=== PATIENT | female | born 1990 | race Caucasian/White ===

== ENCOUNTER 2017-12-20 18:45 | Inpatient (IN) | payer OTHER, SELFPAY ==
[2017-12-20] MEDS: Lactated Ringers 1,000 ML 50 ML IV (19:35)
[2017-12-20 19:39] VITALS: BMI 22.1
--- NOTE | 2017-12-20 19:44 | PCM.HP.OB ---
History Date of Admission: 12/20/17 Final MATTY: 12/13/17 Gestational age: 41 Weeks and 0 Days History of this : This is a 27 year-old, G [], P [], at weeks gestational age. Smoking Status: Never smoker Alcohol: None Number of Fetus(es): 1 Heart Tracin with mod variability, accels TOCO Analysis: Irregular ctxs History Past Pregnancies: Past Pregnancies Delivery Date Name GA/Weeks Outcome Route Weight Gender Labor Length Anesthesia Delivery Location Provider FOB Labs: Anemia GBS negative Physical Exam General: Alert, Oriented x3 Abdomen: Soft, Non Tender, Non-Distended, Gravid Cervix Dilation (cm): 1 Station: -2 Effacement (%): 60 Assessment/Plan 27yo female @ 41 weeks Induction with cytotec GBS negative EFW less than 4500g, patient with adequate pelvis
[2017-12-20 19:54] LABS: Hematocrit 33.8 % (37-47); Hemoglobin 11.7 g/dl (12.0-15.0); Mean Corp Hgb Conc 34.6 g/gl (32-36); Mean Corpuscular Hgb 30.9 pg (27.0-32.0); Mean Corpuscular Volume 89.2 fL (81-99); Mean Platelet Vol. 8.4 fl (6.2-12.0); Platelet Count 283 K/mm3 (150-450); RBC Distribution Width CV 12.8 % (11.6-14.6); RBC Distribution Width SD 40.7 fl (35.1-43.9); Red Blood Count 3.79 M/mm3 (4.2-5.4); White Blood Count 7.1 K/mm3 (4.4-11.0)
[2017-12-20 19:55] LABS: Scan Indicated on CBC? Y/N NO
[2017-12-20] MEDS: miSOPROStol 25 MCG TABLET VAGINAL (20:19)
[2017-12-21] MEDS: miSOPROStol 25 MCG TABLET VAGINAL ×2 (00:12→04:13)
[2017-12-21] MEDS: 0.9% Normal Saline 100 ML IV.SOLN. 250 ML INTRA-UTER (08:59)
--- NOTE | 2017-12-21 09:02 | PCM.PN.OB ---
Subjective: Doing well, at bedside. Rested throughout the night. Feeling some contractions but not painful. Would like to go natural during labor without epidural. Objective: FHT: 115, minimal-moderate variability, accels, no decels, Category 2 TOCO: every 2-5 minutes, mild to palpation Cervix: 2-3cm/80%/-1. Silverio catheter placed for cervical ripening - Physical Exam Weight: 129 lb Body Mass Index (BMI) 22.1 Intake and Output for Last 24 Hours 12/19/17 12/20/17 12/21/17 23:59 23:59 23:59 Intake Total 600 / 600 Output Total 400 / 400 Balance 200 / 200 Laboratory Tests Past 24 Hrs 12/20/17 12/20/17 19:30 19:30 WBC 7.1 RBC 3.79 L Hgb 11.7 L Hct 33.8 L MCV 89.2 MCH 30.9 MCHC 34.6 RDW 12.8 RDW Differential 40.7 Plt Count 283 MPV 8.4 Blood Type O POSITIVE Antibody Screen NEGATIVE Medical Necessity - Tobacco Use Smoking Status: Never smoker Assessment/Plan A: Post dates IOL Category 2 FHT P: 1) Silverio catheter placed. To shower then start IV Pitocin 2) Planning to go unmedicated for delivery 3) Routine care
[2017-12-21] MEDS: 0.9% Saline Lock 10 ML Syringe IV (11:08)
[2017-12-21] MEDS: Oxytocin 30 units/NS 500 ml 30 UNITS/500 ML IV.SOLN IV (11:31)
[2017-12-21] MEDS: Nalbuphine 10 MG/ML Ampul IV (16:52)
--- NOTE | 2017-12-21 17:52 | PCM.PN.OB ---
Subjective: Resting in bed after Nubain on right side. at bedside. Objective: Coping well Cervix: 5cm/60/-2 per nursing TOCO: evrey 2-2.5 minutes, lasting 60 seconds, moderate to palpation FHT: 120, minimal variability, no accels, no decels, Category 2 FHT Side lying release then placed in hands and knees. - Physical Exam Weight: 129 lb Body Mass Index (BMI) 22.1 Intake and Output for Last 24 Hours 12/19/17 12/20/17 12/21/17 23:59 23:59 23:59 Intake Total 600 / 600 Output Total 400 / 400 Balance 200 / 200 Laboratory Tests Past 24 Hrs 12/20/17 12/20/17 19:30 19:30 WBC 7.1 RBC 3.79 L Hgb 11.7 L Hct 33.8 L MCV 89.2 MCH 30.9 MCHC 34.6 RDW 12.8 RDW Differential 40.7 Plt Count 283 MPV 8.4 Blood Type O POSITIVE Antibody Screen NEGATIVE Medical Necessity - Tobacco Use Smoking Status: Never smoker Assessment/Plan A: Postdates IOL Category 2 FHT P: 1) Positional changes 2) Will complete cervical exam in 40 minutes and possible AROM. 3) Doing well with Nubain at this time, epidural ok if desires.
--- NOTE | 2017-12-21 18:58 | PCM.PN.OB ---
Subjective: Standing at bedside, breathing through contractions. present. Objective: FHT 150, minimal variability, accels, Category 2 TOCO: every 2 minutes, moderate to strong palpation Cervix 6cm/80%/-1 IBOW. AROM for large amount of meconium stained fluid. ROT position. - Physical Exam Weight: 129 lb Body Mass Index (BMI) 22.1 Intake and Output for Last 24 Hours 12/19/17 12/20/17 12/21/17 23:59 23:59 23:59 Intake Total 600 / 600 840 / 840 Output Total 400 / 400 1300 / 1300 Balance 200 / 200 -460 / -460 Laboratory Tests Past 24 Hrs 12/20/17 12/20/17 19:30 19:30 WBC 7.1 RBC 3.79 L Hgb 11.7 L Hct 33.8 L MCV 89.2 MCH 30.9 MCHC 34.6 RDW 12.8 RDW Differential 40.7 Plt Count 283 MPV 8.4 Blood Type O POSITIVE Antibody Screen NEGATIVE Medical Necessity - Tobacco Use Smoking Status: Never smoker Assessment/Plan A: Postdates IOL, active labor Category 2 FHT Meconium Stained Fluid P: 1) Requesting epidural for pain management. 2) Positional changes in bed with peanut ball
[2017-12-21] MEDS: Lactated Ringers 1,000 ML 50 ML IV (22:59)
[2017-12-22] MEDS: Ondansetron 4 MG/2 ML Vial IV (02:38)
[2017-12-22] MEDS: Lactated Ringers 1,000 ML 50 ML IV ×3 (02:44→12:32)
[2017-12-22] MEDS: fentaNYL-bupivacaine (epidural) 100 ML BAG EPIDURAL (07:15)
--- NOTE | 2017-12-22 14:15 | PCM.OB.VAG ---
Vaginal Delivery Maternal Presentation: Medically Indicated Induction Method of Induction: Pitocin, Silverio Bulb, Amniotomy, Cytotec Medical Reason for Induction: Post term Amniotic Membrane Rupture Type: Artificial Amniotic Fluid Description: Thick meconium Final MATTY: 12/13/17 Gestational age: 41 Weeks and 2 Days Date of Procedure: 12/22/17 Pre-Operative Diagnosis: Post-dates Post-Operative Diagnosis: Same Surgery/ Procedure Performed: Spontaneous Vaginal Delivery Type of Anesthesia: Epidural Description of Procedure: Patient pushed for over 6 hours. Slow but steady descent was noted as well as head rotation. MD was present on the L&D unit for pushing at the 3.5 hour bhanu of pushing & until delivery. EFM was overall reassuring and continually assessed. When patient was c/c/+3 she was prepped & draped. Patient pushed to deliver head. Gentle traction placed on head to allow delivery of anterior & posterior shoulders. No excess traction placed on head. Body delivered easily. 3VC clamped & cut and male taken to warmer. Pediatric team present for thick meconium fluid. Placenta delivered with gentle traction. Good uterine tone obtained. Placental Delivery Description: Expressed Placenta Disposition: [facility] Cord Vessel Description: 3 Vessels Estimated Blood Loss: 350ml A gender: Male Episiotomy Description: None Laceration: 2nd degree - perineal - repaired with 3-0 vicryl Medications given after delivery: IV Pitocin Complications: None
[2017-12-22] MEDS: Oxytocin 30 units/NS 500 ml 30 UNITS/500 ML IV.SOLN 334 UNITS IV (15:17)
[2017-12-22] MEDS: Oxytocin 30 units/NS 500 ml 30 UNITS/500 ML IV.SOLN 167 UNITS IV (16:00)
[2017-12-22] MEDS: 0.9% Saline Lock 10 ML Syringe IV (17:00)
[2017-12-22] MEDS: Acetaminophen 325 MG Tablet PO (17:25)
[2017-12-22] MEDS: Ibuprofen 600 MG Tablet PO (19:42)
[2017-12-22 19:45] VITALS: BP 140/94; PULSE 76; RESP 18; TEMP 37; O2SAT 98
--- NOTE | 2017-12-22 19:58 | NURSING ---
patient voided, missed hat, will measure next two voids.
[2017-12-22] MEDS: oxyCODONE 5 MG Tablet PO ×2 (21:10→22:23)
[2017-12-22] MEDS: Acetaminophen 500 MG Tablet 1000 MG PO (23:48)
[2017-12-23] VITALS: BP 123/86; PULSE 75; RESP 16; TEMP 36.3; O2SAT 96
[2017-12-23] MEDS: oxyCODONE 5 MG Tablet PO (03:43)
[2017-12-23 03:45] VITALS: BP 114/78; PULSE 70; RESP 16; TEMP 36.2; O2SAT 98
[2017-12-23 08:00] VITALS: BP 122/86; PULSE 75; RESP 18; TEMP 36.7
--- NOTE | 2017-12-23 08:29 | PCM.PN.OB ---
Subjective: No complaints - Physical Exam General: Alert, Oriented x3 Abdomen: Soft, Non Tender, Non-Distended - ff mid & below umb Extremities: No Calf Tenderness Vital Signs Temp Pulse Resp BP Pulse Ox 97.2 F L 70 16 114/78 98 12/23/17 03:45 12/23/17 03:45 12/23/17 03:45 12/23/17 03:45 12/23/17 03:45 Oxygen Delivery Method Room Air Weight: 129 lb Body Mass Index (BMI) 22.1 Intake and Output for Last 24 Hours 12/21/17 12/22/17 12/23/17 23:59 23:59 23:59 Intake Total 840 / 840 2250 / 2250 Output Total 1300 / 1300 600 / 600 500 / 500 Balance -460 / -460 1650 / 1650 -500 / -500 Medical Necessity - Tobacco Use Smoking Status: Never smoker Assessment/Plan PPD#1 Routine care
[2017-12-23] MEDS: Ibuprofen 600 MG Tablet PO ×2 (08:32→16:01)
[2017-12-23] MEDS: Senna/Docusate Sodium 1 Tablet PO (08:33)
[2017-12-23] MEDS: Acetaminophen 500 MG Tablet 1000 MG PO ×2 (11:15→20:30)
[2017-12-23 14:00] VITALS: BP 121/79; PULSE 89; RESP 18; TEMP 36.7
[2017-12-23 20:39] VITALS: PULSE 80; RESP 20; TEMP 37.2
--- NOTE | 2017-12-23 20:42 | NURSING ---
pt anxious and tearful due to baby in SCN . support given, encouragement given
[2017-12-23 22:00] VITALS: BP 123/80
[2017-12-24] MEDS: Ibuprofen 600 MG Tablet PO ×2 (03:07→09:00)
[2017-12-24] MEDS: Acetaminophen 500 MG Tablet 1000 MG PO (03:08)
[2017-12-24 03:19] VITALS: BP 117/63; PULSE 72; RESP 16; TEMP 36.8; O2SAT 98
[2017-12-24 08:55] VITALS: BP 109/68; PULSE 69; RESP 16; TEMP 36.7; O2SAT 98
[2017-12-24] MEDS: Senna/Docusate Sodium 1 Tablet PO (09:01)
--- NOTE | 2017-12-24 10:35 | PN.OBGYN_ITS ---
Subjective: Doing well per patient and nursing staff. Ambulating and taking PO without difficulty. Voiding and passing flatus. Pain controlled. Baby in special care nursery, not discharged today. and pumping. Baby getting formula supplementation due to hypoglycemia. Tearful today with baby in special care but doing well. Denies headache, visual changes, chest pain, shortness of breath , increased vaginal bleeding or clots, no leg pain. D/C from service and will be hotel status. - Physical Exam General: Alert, Oriented x3 Lungs: Clear to auscultation, Normal air movement, No rhonchi, No wheeze Cardiovascular: Regular rate, Regular Rhythm, No murmurs Abdomen: Bowel Sounds Present, Soft, Non Tender, - - Fundus firm 2 below U Extremities: No edema Psych/Mental Status: Normal Affect, Appropriate, - - Tearful due to baby in special care nursery. Appropriate, at bedside. Vital Signs Temp Pulse Resp BP Pulse Ox 98.0 F 69 16 109/68 98 12/24/17 08:55 12/24/17 08:55 12/24/17 08:55 12/24/17 08:55 12/24/17 08:55 Oxygen Delivery Method Room Air Weight: 129 lb Body Mass Index (BMI) 22.1 Intake and Output for Last 24 Hours 12/22/17 12/23/17 12/24/17 23:59 23:59 23:59 Intake Total 2250 / 2250 Output Total 600 / 600 500 / 500 Balance 1650 / 1650 -500 / -500 Medical Necessity - Tobacco Use Smoking Status: Never smoker Assessment/Plan A: PPD #2 P: 1) D/C and instructions given 2) D/C home today 3) Follow up in 6 weeks
--- NOTE | 2017-12-24 10:36 | DCINST_ITS ---
Discharge Diet: No Restrictions Discharge Activity: Return to Normal Activity, May not drive while taking narcotic pain medications., May Shower May resume sexual activity in: 4-6 weeks Weight Bearing Status: Weight bearing as tolerated Call your doctor if your incision/area has: Continuous Slow Oozing, Sudden Increased Bleeding, Increased Pain/ Swelling, Increased Redness, Foul Smelling Discharge Call your doctor if you observe: Fever of 101 or Higher, Inability to urinate, Inability to have a bowel movement, Using more than one pad per hour, Shortness of breath, Chest pain, Increased palpitations (irregular heartbeat), Uncontrolled pain Additional Instructions: If you experience any of the following, contact your healthcare provider. * Bleeding that soaks a pad every hour for 2 hours * Fever 100.4 or higher * Unrelieved incision or abdominal pain * Swelling, redness, discharge or bleeding from your incision or episiotomy site * Your incision begins to separate * Problems urinating (including inability to urinate or burning while urinating) . * Visual changes * Severe headache * Flu-like symptoms * Pain or redness in one of both of your breasts * Pain, warmth, tenderness or swelling in your legs, especially the calf area * Frequent nausea and vomiting * Symptoms of depression or anxiety If you experience any of the following, call 911 or go to the nearest Emergency Room. * Chest pain * Problems breathing * Seizure activity * Partial or complete paralysis of a body part, slurred speech, weakness or drooping of the face, or a sudden inability to walk or hold your balance Allergies/Adverse Reactions: Allergies No Known Allergies Allergy (Verified 12/20/17 19:45) Medications to take at Discharge Iron 1 tab PO QODAY 12/20/17 Prenatabs FA 1 tab PO DAILY 12/20/17 Acetaminophen [Tylenol] 1,000 mg PO Q8H PRN PRN tablet 12/24/17 Please Follow Up With: Manda Camacho When: Call to make an appointment with your doctor in 6 weeks. If you had elevated Blood Pressure or 4th degree laceration you will need to be seen in 2 weeks. Primary Care Physician: Care Physician,No Primary [Primary Care Provider] - Test Results: Test results from this visit will be discussed in further detail at your follow- up appointment, if applicable.
[2017-12-24 14:30] VITALS: BP 129/86; PULSE 73; RESP 16; TEMP 37.1; O2SAT 99
[2017-12-24 16:53] VITALS: BP 118/73; PULSE 66
--- NOTE | 2017-12-30 16:11 | NURSING ---
follow up call attempted, left message
== END 2017-12-24 18:20 | disposition home or self-care (01) | DRG 775 ==
PROVIDERS: Admitting Provider Obstetrics & Gynecology; Visit Provider Obstetrics & Gynecology
DX: O48.0 Post-term pregnancy (principal); O77.0 Labor and delivery complicated by meconium in amniotic fluid; O70.1 Second degree perineal laceration during delivery; O99.02 Anemia complicating childbirth; D64.9 Anemia, unspecified; Z3A.41 41 weeks gestation of pregnancy; Z37.0 Single live birth
CPT/HCPCS: 59025; 59050; 85027; 86850; 86900; 99218; J7050; J7120; A4216; G0378; J2405

== ENCOUNTER → 2020-03-06 09:45 | Outpatient (CLI) | payer OTHER, SELFPAY ==
[2020-03-06 11:29] LABS: Hematocrit 38.9 % (37-47); Hemoglobin 12.9 g/dL (12.0-15.0); Mean Corp Hgb Conc 33.2 g/dL (32-36); Mean Corpuscular Hgb 30.1 pg (27.0-32.0); Mean Corpuscular Volume 90.9 fL (81-99); Mean Platelet Vol. 8.4 fl (6.2-12.0); Platelet Count 316 K/mm3 (150-450); RBC Distribution Width CV 11.4 % (11.6-14.6); RBC Distribution Width SD 38.5 fl (35.1-43.9); Red Blood Count 4.28 M/mm3 (4.2-5.4); White Blood Count 12.2 K/mm3 (4.4-11.0)
--- NOTE | 2020-03-06 11:32 | HP.PCM_ITS ---
History of Present Illness Date of Admission: 03/06/20 Chief Complaint: Incomplete The patient is a 29 year old F presents from office with heavy vaginal bleeding from a miscarriage. She had 2 syncopal episodes in the office and thus came to [facility] by squad. Past Medical History Allergies No Known Allergies Allergy (Verified 03/06/20 10:07) Home Medications: Ambulatory Orders Medication Instructions Recorded Prenatabs FA 1 tab PO DAILY 12/20/17 Surgical History: noncontributory Psychiatric History: No pertinent psych hx Lives: Spouse/ Significant Other, With Family Smoking Status: Never smoker Review of Systems Constitutional: Reports: Weakness Cardiovascular: Reports: Syncope VTE Information - Inpt Only VTE Present on Admission: No - Physical Exam General: Alert, Oriented x3 - but tired Abdomen: Soft, Non Tender, Non-Distended Extremities: No Calf Tenderness Neurological: Cranial nerves II-XII grossly intact Comment: Pelvic exam in office - showed vagina with 50ml blood, no active bleeding Laboratory Results 03/06/20 10:50: WBC 12.2 H, RBC 4.28, Hgb 12.9, Hct 38.9, MCV 90.9, MCH 30.1, MCHC 33.2, RDW Std Deviation 38.5, RDW Coeff of Dana 11.4 L, Plt Count 316, MPV 8.4 03/06/20 10:50: Sodium Pending, Potassium Pending, Chloride Pending, Carbon Dioxide Pending, Anion Gap Pending, BUN Pending, Creatinine Pending, Est GFR (MDRD) Af Amer Pending, Est GFR (MDRD) Non-Af Pending, BUN/Creatinine Ratio Pending, Glucose Pending, Calcium Pending, Total Bilirubin Pending, AST Pending, ALT Pending, Alkaline Phosphatase Pending, Total Protein Pending, Albumin Pending 03/06/20 10:50: Blood Type Cancelled, Antibody Screen Cancelled Assessment/Plan 29yo female with incomplete at 6 weeks Patient counseled on R/B/A and wishes to proceed with emergent D&C. Informed consent signed. Labs ordered and CBC shows hb of 12.9 which is likely hemoconcentrated. Will repeat cbc post-op. Routine care
[2020-03-06 11:53] LABS: ALB/GLOB Ratio 1.1 RATIO (0.9-2.4); AST(SGOT) 13 U/L (15-37); Alanine Aminotransfer ALT/SGPT 17 U/L (13-56); Alkaline Phosphatase 61 U/L (45-117); Anion Gap 5 (5-15); BUN 13 mg/dL (7-18); BUN/Creat Ratio 18.7 RATIO (10-20); Calcium,Total 9.1 mg/dL (8.5-10.1); Chloride 107 mmol/L (98-107); EST Glomerular Filtration Rate 106 mL/min (>60); Est Glom Filt Rate - Afr Amer 128 mL/min (>60); Globulin 3.6 g/dL (2.2-4.2); Glucose 109 mg/dL (74-106); Potassium 3.9 mmol/L (3.5-5.1); Protein, Total 7.6 g/dL (6.4-8.2); Sodium Level 138 mmol/L (136-145)
--- NOTE | 2020-03-06 11:59 | PCM.OPRPT ---
Report of Operation Date of Procedure: 03/06/20 Pre-Operative Diagnosis: Incomplete at 6 weeks Post-Operative Diagnosis: Same Surgery/Procedure Performed:: Suction dilation and curettage Description of Surgical Findings:: POC's c/w 6 week miscarriage Type of Anesthesia:: General Specimen's removed: Products of conception Drains: None Estimated Blood Loss (mL): 50ml Fluids Replaced: 800ml Description of Procedure: Start time - 11:44 Stop time - 11:52 Patient taken to OR where general anesthesia was placed. She was prepped & draped in the dorsal lithotomy position. Cervix grasped with a tenaculum. #7 suction curette gently inserted 3 times with good return of POC's. Gentle sharp curettage performed with #3 curette to confirm no retained POC's. At end of procedure all instruments removed from vaginal cavity. Patient tolerated with procedure well. - Complications none - Admit VTE Documentation VTE Present on Admission: No
[2020-03-06 12:56] LABS: Absolute Lymphocyte Count 1.51 X10^3/uL (0.83-4.51); Absolute Neutrophil Count 9.8 X10^3/uL (2.0-7.7); Basophil# 0.06 X10^3/uL; Basophil% 0.5 % (0-1); Eosinophil# 0.06 X10^3/uL; Eosinophils% 0.5 % (0-5); Lymphocyte # 1.51 X10^3/ul (4.0); Lymphocyte % 12.5 % (19-41); Monocyte# 0.61 X10^3/uL; NRBC Flagged by Analyzer 0 % (0-5); Neutrophil # 9.83 X10^3/uL (2.7-7.7); Neutrophil % 81.3 % (47-70)
[2020-03-06 13:35] LABS: Absolute Lymphocyte Count 1.06 X10^3/uL (0.83-4.51); Absolute Neutrophil Count 10.6 X10^3/uL (2.0-7.7); Basophil# 0.04 X10^3/uL; Basophil% 0.3 % (0-1); Eosinophil# 0.03 X10^3/uL; Eosinophils% 0.2 % (0-5); Hematocrit 35.8 % (37-47); Hemoglobin 11.7 g/dL (12.0-15.0); Lymphocyte # 1.06 X10^3/ul (4.0); Lymphocyte % 8.8 % (19-41); Mean Corp Hgb Conc 32.7 g/dL (32-36); Mean Corpuscular Hgb 29.5 pg (27.0-32.0); Mean Corpuscular Volume 90.4 fL (81-99); Mean Platelet Vol. 8.5 fl (6.2-12.0); Monocyte# 0.34 X10^3/uL; Monocyte% 2.8 % (0-10); NRBC Flagged by Analyzer 0 % (0-5); Neutrophil # 10.58 X10^3/uL (2.7-7.7); Neutrophil % 87.5 % (47-70); Platelet Count 247 K/mm3 (150-450); RBC Distribution Width CV 11.3 % (11.6-14.6); RBC Distribution Width SD 38.1 fl (35.1-43.9); Red Blood Count 3.96 M/mm3 (4.2-5.4); White Blood Count 12.1 K/mm3 (4.4-11.0)
--- NOTE | 2020-03-06 14:24 | DCINST_ITS ---
Discharge Diet: No Restrictions Discharge Activity: Return to Normal Activity - afer 24-48 hours May resume sexual activity in: 2 weeks Call your doctor if you observe: Fever of 101 or Higher, Coldness, Increased Pain, Numbness or Tingling, Change in Color, Inability to urinate, Inability to have a bowel movement, Using more than one pad per hour, Shortness of breath, Fainting spells, Chest pain, Increased palpitations (irregular heartbeat), Uncontrolled pain Allergies/Adverse Reactions: Allergies No Known Allergies Allergy (Verified 03/06/20 10:07) Medications to take at Discharge Prenatabs FA 1 tab PO DAILY 12/20/17 Test Results: Test results from this visit will be discussed in further detail at your follow- up appointment, if applicable.
== END ==
PROVIDERS: Visit Provider Obstetrics & Gynecology
DX: O03.4 Incomplete spontaneous abortion without complication (principal)
CPT/HCPCS: 80053; 85025; 85027

== ENCOUNTER 2020-03-06 10:03 | Day surgery (SDC) | payer OTHER, SELFPAY ==
[2020-03-06] VITALS (14 sets, daily range): BP systolic 89–120; BP diastolic 52–75; PULSE 56–96; RESP 16–18; TEMP 36.7–37.1; O2SAT 100; BMI 19.2
--- NOTE | 2020-03-06 10:00 | POC_PTH ---
PATIENT: ALPHONSE BRUNO LOC: [facility] [place] U#:[id number] AGE/SX: 29/F ROOM: RE03/06/[address]: Dr. Manda Camacho MD : 1990 BED: DIS: 03/06/2020 SPEC #: [id number] RECD: 03/06/20 12:27 STATUS: TIM PATRICK #: [id number] KYLEE: 03/06/20 10:[address]: Manda Camacho DEPT: SURGICAL PATHOLOGY RECD BY: Janak Lozano ENTERED: 03/06/20 12:37 SP TYPE: PROD CONC OTHR DR: No Primary Care Phys Tissues: Product of conception, NOS Procedures: Surgery Specimen Level IV HEADER OPERATION: Suction D & C PRE-OP DIAGNOSIS: Missed AB TISSUE SUBMITTED: Products of conception MICROSCOPIC DIAGNOSIS Endometrium, curettage: Chorionic villi, decidualized stroma and trophoblastic cells consistent with products of conception. AM:luiza 10/9/20 MICROSCOPIC DESCRIPTION Slides are reviewed. GROSS DESCRIPTION Received in fixative is one container labeled with the patient's name and designated products of conception. The specimen consists of multiple irregular fragments of pink-murphy soft tissue that in aggregate measure 6 x 5 x 0.8 cm. parts are not grossly recognized. Commercial Relief Driver portions are submitted in two cassettes. / AM:luiza 03/06/20 TC:5 CPT: 83665
--- NOTE | 2020-03-06 10:29 | ED.RN ---
1008 this RN received call from Dheeraj Whaley in surgery. Per GENERATION ENGINEER the patient is to be taken directly to OR upon EMS arrival. ED RN was already triaging patient in the ED room. ED RN instructed to transport patient to OR and that ED physician was not expected to evaluate patient in ED.
[2020-03-06] MEDS: Lactated Ringers 1,000 ML 999 ML IV (11:00)
[2020-03-06] MEDS: Methylergonovine 0.2 MG/ML Ampul IM (11:46)
[2020-03-06] MEDS: Doxycycline 100 MG CAPSULE 200 MG PO (14:30)
--- NOTE | 2020-03-07 15:23 | ED.DCSUM_ITS ---
History of Present Illness Chief Complaint: Vag Bld, Preg Narrative: 29-year-old female who was sent to the ER by her TRAFFIC POLICE OFFICER for concern of threatened miscarriage with heavy vaginal bleeding. It was reported to me over the phone when Jeanna Camacho had called that she wanted us to check a CBC and a type and screen and they would then determine whether the patient would go to the OR for D&C. Patient was reportedly 8 weeks . Past Medical History - Allergies and Home Meds Allergies/Adverse Reactions: Allergies No Known Allergies Allergy (Verified 03/06/20 10:07) Past Medical History: - - Unable to obtain Surgical History: noncontributory Lives: - - Unable to obtain social history Smoking Status: Never smoker Review of Systems ROS: Unable to Obtain Physical Exam Inital Vital Signs reviewed: Yes General: - - Unable to perform physical exam Diagnostic/Tx/Re-eval - Medical Decision Making Patient was sent to the ED for evaluation and to obtain CBC and type and screen and then determine whether TRAFFIC POLICE OFFICER would take her to the OR versus using medication. Upon her arrival I did review her vital signs, and when I went to the room to evaluate the patient she had already been taken to the OR by her TRAFFIC POLICE OFFICER. Impression: 1. Reported threatened miscarriage ED Disposition - Plan for ED Patient: Disposition: Acute [facility]
== END 2020-03-06 15:22 | disposition home or self-care (01) ==
LOC: ED 10:36 → SDC 11:20 → ED 15:06 → SDC 15:10
PROVIDERS: Emergency Provider Obstetrics & Gynecology; Visit Provider Obstetrics & Gynecology
PROC: (CPT 59820; principal; 2020-03-06 09:45)
DX: O02.1 Missed abortion (principal); Z3A.01 Less than 8 weeks gestation of pregnancy
CPT/HCPCS: 59820; 80053; 85025; 86850; 86900; 86901; 86920; 88305; 99283; J7120; J2405

== ENCOUNTER 2021-01-27 07:00 | Inpatient (IN) | payer OTHER, SELFPAY ==
[2021-01-27] VITALS (81 sets, daily range): BP systolic 93–138; BP diastolic 55–92; PULSE 48–156; RESP 16; TEMP 36.1–36.4; O2SAT 83–100; BMI 21.8
[2021-01-27] MEDS: Lactated Ringers 1,000 ML 50 ML IV (07:40)
[2021-01-27 07:50] LABS: Absolute Lymphocyte Count 1.99 X10^3/uL (0.83-4.51); Basophil# 0.06 X10^3/uL; Basophil% 0.9 % (0-1); Eosinophil# 0.08 X10^3/uL; Eosinophils% 1.2 % (0-5); Hematocrit 34.8 % (37-47); Hemoglobin 11.9 g/dL (12.0-15.0); Lymphocyte # 1.99 X10^3/ul (0.83-4.51); Lymphocyte % 29.7 % (19-41); Mean Corp Hgb Conc 34.2 g/dL (32-36); Mean Corpuscular Hgb 31.2 pg (27.0-32.0); Mean Corpuscular Volume 91.1 fL (81-99); Mean Platelet Vol. 9.9 fl (6.2-12.0); Monocyte# 0.51 X10^3/uL; Monocyte% 7.6 % (0-10); NRBC Flagged by Analyzer 0 % (0-5); Neutrophil # 4.03 X10^3/uL (2.7-7.7); Neutrophil % 60.2 % (47-70); Platelet Count 179 K/mm3 (150-450); RBC Distribution Width CV 12.9 % (11.6-14.6); RBC Distribution Width SD 41.9 fl (35.1-43.9); Red Blood Count 3.82 M/mm3 (4.2-5.4); White Blood Count 6.7 K/mm3 (4.4-11.0)
[2021-01-27] MEDS: Oxytocin 30 units/NS 500 ml 30 UNITS/500 ML IV.SOLN IV (07:53)
[2021-01-27] MEDS: Lactated Ringers 500 ML 999 ML IV ×2 (11:20→12:04)
--- NOTE | 2021-01-27 11:29 | PCM.HP.OB ---
HPI - General General Date of Admission: 01/27/21 HPI Narrative ALPHONSE BRUNO, is a 30 F who presents Maternal Data Information Final MATTY: 02/03/21 Gestational age: 39 weeks [facility] Medical History (Updated 01/27/21 @ 11:[address] Manda Camacho MD) 39 weeks gestation of Home Medications Prenatabs FA 1 tab PO DAILY 12/20/17 [History Last Taken 01/26/21 10:00] ferrous sulfate [Iron (ferrous sulfate)] 325 mg PO DAILY 01/27/21 [History Last Taken 01/25/21 10:00] Allergy/AdvReac Type Severity Reaction Status Date / Time No Known Allergies Allergy Verified 01/27/21 07:46 Family History (Updated 01/27/21 @ 08:06 by Helen Carbajal RN) Mother Hypertension Father Hypertension Uncle Down syndrome Surgical History (Updated 01/27/21 @ 11:[address] Manda Camacho MD) H/O dilation and curettage Social History Smoking Status: Never smoker History Elective abortions Hx Para 1 Spontaneous abortions Hx # Term Pregnancies Ectopic pregnancies Hx # Pregnancies Multiple births # of living children NST FHR Rate Baby A Baseline: 115 Variability:: Moderate Accelerations:: 15 x 15 Decelerations:: None Uterine Activity:: Q 3 minutes Vital Signs Vital Signs Vital Signs: 01/27/21 08:17 01/27/21 08:18 01/27/21 08:20 Temperature 97.2 F L Temperature Source Temporal Pulse Rate 60 156 H Blood Pressure 125/67 H BP Systolic 125 BP Diastolic 67 Pulse Ox 84 01/27/21 09:08 01/27/21 09:09 01/27/21 10:23 Temperature 97.4 F L 97.5 F L Temperature Source Temporal Temporal Pulse Rate 72 57 L Blood Pressure 134/92 H 131/80 H BP Systolic 134 131 BP Diastolic 92 80 Pulse Ox 99 01/27/21 10:24 Temperature Temperature Source Pulse Rate 61 Blood Pressure BP Systolic BP Diastolic Pulse Ox 99 Weight Weight: 127 lb Body Mass Index (BMI) 21.8 Physical Exam Const alert, oriented x3 and no apparent distress Chest inspection of chest normal Resp normal respiratory effort GI soft to palpation and non-tender Inspection: gravid Narrative: cvx - 3/80/-2 Labs Labs Labs: Blood Type O POSITIVE Antibody Screen NEGATIVE Hct 34.8 % (37-47) L Hgb 11.9 g/dL (12.0-15.0) L Rhogam given: No See [facility] H&P Assessment & Plan (1) 39 weeks gestation of : COMMENT: 39 weeks PLAN: Admit to L&D for induction of labor On pitocin & s/p AROM for clear fluid GBS positive - pcn protocol COVID negative EFW - less than 4500g, patient with adequate pelvis Pain - plans for epidural Routine care
[2021-01-27] MEDS: fentaNYL-bupivacaine (epidural) 100 ML BAG EPIDURAL (12:39)
[2021-01-27] MEDS: Penicillin G 3,000,000 Units 50 ML 100 UNITS IV (12:46)
[2021-01-27] MEDS: Oxytocin 30 units/NS 500 ml 30 UNITS/500 ML IV.SOLN 334 UNITS IV (15:15)
[2021-01-27] MEDS: Ketorolac 30 MG/ML Syringe IV (15:20)
--- NOTE | 2021-01-27 15:37 | EX.PCM.OBRPT ---
Maternal Data Information Final MATTY: 02/03/21 Gestational age: 39 weeks Vaginal Delivery Maternal Presentation Maternal Presentation: Medically Indicated Induction (Femur length less than 2%) Type of Induction: Pitocin and Amniotomy Operative Information Date of Procedure: 01/27/21 Pre-Operative Diagnosis: Induction of labor Post-Operative Diagnosis: Same Surgery / Procedure Performed: Spontaneous Vaginal Delivery Type of Anesthesia: Epidural and Local with 1% Lidocaine Estimated Blood Loss: 350ml Findings Description of Procedure: Pushed with patient when she was C/C/+1. She was draped when C/C/+2. She pushed well to deliver the head with aid of the Ritgen maneuver (used because of bradycardia). head gently guided to allow delivery of anterior and posterior shoulders. No excess traction placed on head. Body delivered and 3VC clamped & cut in delayed fashion. Placenta delivered with gentle traction and good uterine tone obtained. Presentation: LACHO Amniotic Membrane Rupture Type: Artificial Amniotic Fluid Description: Clear Placental Delivery Description: Expressed Placenta Disposition: [facility] Specimen(s) Removed: Placenta Cord Vessel Description: 3 Vessels Cord Entanglement: None Infant A Gender: Male ([place]) (1 minute): 8 (5 minute): 9 Delayed Cord Clamping: Yes Post Vaginal Delivery Medications Given After Delivery: IV Pitocin Episiotomy Description: None Laceration: 2nd degree (perineal - repaired with 3-0 vicryl) Complication Complications: None
[2021-01-27] MEDS: Acetaminophen 500 MG Tablet PO (16:51)
[2021-01-27] MEDS: 0.9% Saline Lock 10 ML Syringe IV (18:10)
[2021-01-27] MEDS: Benzocaine/Lanolin/Aloe Vera 1 SPRAY EACH TOPICAL (18:52)
--- NOTE | 2021-01-27 19:41 | PCM.NUR.HP ---
Objective Objective Data: 01/27/21 08:17 01/27/21 08:18 01/27/21 08:20 Temperature 97.2 F L Temperature Source Temporal Pulse Rate 60 156 H Respiratory Rate Blood Pressure 125/67 H Blood Pressure [BP] Blood Pressure Mean [BP] BP Systolic 125 BP Diastolic 67 Blood Pressure Source [BP] Blood Pressure Position [BP] Blood Pressure Location [BP] Pulse Ox 84 Oxygen Delivery Method 01/27/21 09:08 01/27/21 09:09 01/27/21 10:23 Temperature 97.4 F L 97.5 F L Temperature Source Temporal Temporal Pulse Rate 72 57 L Respiratory Rate Blood Pressure 134/92 H 131/80 H Blood Pressure [BP] Blood Pressure Mean [BP] BP Systolic 134 131 BP Diastolic 92 80 Blood Pressure Source [BP] Blood Pressure Position [BP] Blood Pressure Location [BP] Pulse Ox 99 Oxygen Delivery Method 01/27/21 10:24 01/27/21 11:52 01/27/21 11:57 Temperature Temperature Source Pulse Rate 61 62 88 Respiratory Rate Blood Pressure 125/60 H Blood Pressure [BP] Blood Pressure Mean [BP] BP Systolic 125 BP Diastolic 60 Blood Pressure Source [BP] Blood Pressure Position [BP] Blood Pressure Location [BP] Pulse Ox 99 99 99 Oxygen Delivery Method 01/27/21 12:02 01/27/21 12:03 01/27/21 12:05 Temperature Temperature Source Pulse Rate 61 80 48 L Respiratory Rate Blood Pressure 93/55 L 112/70 Blood Pressure [BP] Blood Pressure Mean [BP] BP Systolic 93 112 BP Diastolic 55 70 Blood Pressure Source [BP] Blood Pressure Position [BP] Blood Pressure Location [BP] Pulse Ox 98 Oxygen Delivery Method 01/27/21 12:06 01/27/21 12:07 01/27/21 12:11 Temperature Temperature Source Pulse Rate 51 L 81 Respiratory Rate Blood Pressure 118/72 120/75 Blood Pressure [BP] Blood Pressure Mean [BP] BP Systolic 118 120 BP Diastolic 72 75 Blood Pressure Source [BP] Blood Pressure Position [BP] Blood Pressure Location [BP] Pulse Ox 97 Oxygen Delivery Method 01/27/21 12:12 01/27/21 12:14 01/27/21 12:17 Temperature Temperature Source Pulse Rate 77 59 L 51 L Respiratory Rate Blood Pressure Blood Pressure [BP] Blood Pressure Mean [BP] BP Systolic BP Diastolic Blood Pressure Source [BP] Blood Pressure Position [BP] Blood Pressure Location [BP] Pulse Ox 100 91 96 Oxygen Delivery Method 01/27/21 12:18 01/27/21 12:22 01/27/21 12:27 Temperature Temperature Source Pulse Rate 54 L 60 74 Respiratory Rate Blood Pressure 115/72 116/74 106/62 Blood Pressure [BP] Blood Pressure Mean [BP] BP Systolic 115 116 106 BP Diastolic 72 74 62 Blood Pressure Source [BP] Blood Pressure Position [BP] Blood Pressure Location [BP] Pulse Ox 98 Oxygen Delivery Method 01/27/21 12:28 01/27/21 12:32 01/27/21 12:33 Temperature Temperature Source Pulse Rate 57 L 54 L 68 Respiratory Rate Blood Pressure 100/55 L Blood Pressure [BP] Blood Pressure Mean [BP] BP Systolic 100 BP Diastolic 55 Blood Pressure Source [BP] Blood Pressure Position [BP] Blood Pressure Location [BP] Pulse Ox 99 88 Oxygen Delivery Method 01/27/21 12:38 01/27/21 12:39 01/27/21 12:41 Temperature Temperature Source Pulse Rate 59 L 53 L Respiratory Rate Blood Pressure 106/60 111/61 Blood Pressure [BP] Blood Pressure Mean [BP] BP Systolic 106 111 BP Diastolic 60 61 Blood Pressure Source [BP] Blood Pressure Position [BP] Blood Pressure Location [BP] Pulse Ox 90 Oxygen Delivery Method 01/27/21 12:43 01/27/21 12:48 01/27/21 12:53 Temperature Temperature Source Pulse Rate 74 63 105 H Respiratory Rate Blood Pressure 105/61 Blood Pressure [BP] Blood Pressure Mean [BP] BP Systolic 105 BP Diastolic 61 Blood Pressure Source [BP] Blood Pressure Position [BP] Blood Pressure Location [BP] Pulse Ox 100 96 100 Oxygen Delivery Method 01/27/21 12:58 01/27/21 13:03 01/27/21 13:08 Temperature Temperature Source Pulse Rate 67 70 62 Respiratory Rate Blood Pressure Blood Pressure [BP] Blood Pressure Mean [BP] BP Systolic BP Diastolic Blood Pressure Source [BP] Blood Pressure Position [BP] Blood Pressure Location [BP] Pulse Ox 100 100 100 Oxygen Delivery Method 01/27/21 13:13 01/27/21 13:18 01/27/21 13:21 Temperature Temperature Source Pulse Rate 81 67 89 Respiratory Rate Blood Pressure Blood Pressure [BP] Blood Pressure Mean [BP] BP Systolic BP Diastolic Blood Pressure Source [BP] Blood Pressure Position [BP] Blood Pressure Location [BP] Pulse Ox 99 98 90 Oxygen Delivery Method 01/27/21 13:23 01/27/21 13:24 01/27/21 13:25 Temperature 96.9 F L Temperature Source Temporal Pulse Rate 59 L 59 L Respiratory Rate Blood Pressure 114/71 Blood Pressure [BP] Blood Pressure Mean [BP] BP Systolic 114 BP Diastolic 71 Blood Pressure Source [BP] Blood Pressure Position [BP] Blood Pressure Location [BP] Pulse Ox 100 Oxygen Delivery Method 01/27/21 13:28 01/27/21 13:33 01/27/21 13:49 Temperature 97.2 F L Temperature Source Temporal Pulse Rate 76 108 H Respiratory Rate Blood Pressure Blood Pressure [BP] Blood Pressure Mean [BP] BP Systolic BP Diastolic Blood Pressure Source [BP] Blood Pressure Position [BP] Blood Pressure Location [BP] Pulse Ox 100 100 Oxygen Delivery Method 01/27/21 14:49 01/27/21 15:05 01/27/21 15:10 Temperature Temperature Source Pulse Rate 75 98 131 H Respiratory Rate Blood Pressure Blood Pressure [BP] Blood Pressure Mean [BP] BP Systolic BP Diastolic Blood Pressure Source [BP] Blood Pressure Position [BP] Blood Pressure Location [BP] Pulse Ox 96 93 90 Oxygen Delivery Method 01/27/21 15:37 01/27/21 15:42 01/27/21 15:47 Temperature 97.3 F L Temperature Source Temporal Pulse Rate 86 83 73 Respiratory Rate Blood Pressure 129/70 H Blood Pressure [BP] Blood Pressure Mean [BP] BP Systolic 129 BP Diastolic 70 Blood Pressure Source [BP] Blood Pressure Position [BP] Blood Pressure Location [BP] Pulse Ox 100 100 100 Oxygen Delivery Method 01/27/21 15:49 01/27/21 15:52 01/27/21 15:57 Temperature Temperature Source Pulse Rate 76 75 64 Respiratory Rate Blood Pressure 138/79 H Blood Pressure [BP] Blood Pressure Mean [BP] BP Systolic 138 BP Diastolic 79 Blood Pressure Source [BP] Blood Pressure Position [BP] Blood Pressure Location [BP] Pulse Ox 100 100 Oxygen Delivery Method 01/27/21 16:02 01/27/21 16:07 01/27/21 16:09 Temperature Temperature Source Pulse Rate 71 63 72 Respiratory Rate Blood Pressure 130/58 H Blood Pressure [BP] Blood Pressure Mean [BP] BP Systolic 130 BP Diastolic 58 Blood Pressure Source [BP] Blood Pressure Position [BP] Blood Pressure Location [BP] Pulse Ox 100 100 Oxygen Delivery Method 01/27/21 16:10 01/27/21 16:12 01/27/21 16:17 Temperature Temperature Source Pulse Rate 64 70 Respiratory Rate Blood Pressure Blood Pressure [BP] Blood Pressure Mean [BP] BP Systolic BP Diastolic Blood Pressure Source [BP] Blood Pressure Position [BP] Blood Pressure Location [BP] Pulse Ox 83 100 100 Oxygen Delivery Method 01/27/21 16:20 01/27/21 16:22 01/27/21 16:27 Temperature 97.0 F L Temperature Source Temporal Pulse Rate 68 58 L 60 Respiratory Rate Blood Pressure 127/79 H Blood Pressure [BP] Blood Pressure Mean [BP] BP Systolic 127 BP Diastolic 79 Blood Pressure Source [BP] Blood Pressure Position [BP] Blood Pressure Location [BP] Pulse Ox 100 100 Oxygen Delivery Method 01/27/21 16:32 01/27/21 16:34 01/27/21 16:37 Temperature 97.1 F L Temperature Source Temporal Pulse Rate 61 57 L 62 Respiratory Rate Blood Pressure 128/77 H Blood Pressure [BP] Blood Pressure Mean [BP] BP Systolic 128 BP Diastolic 77 Blood Pressure Source [BP] Blood Pressure Position [BP] Blood Pressure Location [BP] Pulse Ox 100 100 Oxygen Delivery Method 01/27/21 16:42 01/27/21 16:47 01/27/21 16:49 Temperature 97.1 F L Temperature Source Temporal Pulse Rate 63 69 71 Respiratory Rate Blood Pressure 126/83 H Blood Pressure [BP] Blood Pressure Mean [BP] BP Systolic 126 BP Diastolic 83 Blood Pressure Source [BP] Blood Pressure Position [BP] Blood Pressure Location [BP] Pulse Ox 100 100 Oxygen Delivery Method 01/27/21 16:52 01/27/21 16:57 01/27/21 17:02 Temperature Temperature Source Pulse Rate 66 72 65 Respiratory Rate Blood Pressure Blood Pressure [BP] Blood Pressure Mean [BP] BP Systolic BP Diastolic Blood Pressure Source [BP] Blood Pressure Position [BP] Blood Pressure Location [BP] Pulse Ox 100 100 100 Oxygen Delivery Method 01/27/21 17:04 01/27/21 17:07 01/27/21 17:12 Temperature 97.5 F L Temperature Source Temporal Pulse Rate 81 66 67 Respiratory Rate Blood Pressure 125/85 H Blood Pressure [BP] Blood Pressure Mean [BP] BP Systolic 125 BP Diastolic 85 Blood Pressure Source [BP] Blood Pressure Position [BP] Blood Pressure Location [BP] Pulse Ox 100 100 Oxygen Delivery Method 01/27/21 17:17 01/27/21 17:18 01/27/21 17:19 Temperature 97.5 F L Temperature Source Temporal Pulse Rate 68 79 Respiratory Rate Blood Pressure 130/85 H Blood Pressure [BP] Blood Pressure Mean [BP] BP Systolic 130 BP Diastolic 85 Blood Pressure Source [BP] Blood Pressure Position [BP] Blood Pressure Location [BP] Pulse Ox 100 Oxygen Delivery Method 01/27/21 17:22 01/27/21 17:31 01/27/21 17:33 Temperature Temperature Source Pulse Rate 71 71 73 Respiratory Rate Blood Pressure 124/70 H Blood Pressure [BP] Blood Pressure Mean [BP] BP Systolic 124 BP Diastolic 70 Blood Pressure Source [BP] Blood Pressure Position [BP] Blood Pressure Location [BP] Pulse Ox 100 98 Oxygen Delivery Method 01/27/21 17:34 Temperature 97.4 F L Temperature Source Temporal Pulse Rate 79 Respiratory Rate 16 Blood Pressure 122/71 H Blood Pressure [BP] 122/71 H Blood Pressure Mean [BP] 88 BP Systolic 122 BP Diastolic 71 Blood Pressure Source [BP] Monitor Blood Pressure Position [BP] Semi-Fowlers Blood Pressure Location [BP] Left Arm Pulse Ox 99 Oxygen Delivery Method Room Air Weight: 57.606 kg Vital Signs Temp Pulse Resp BP BP Pulse Ox 01/27/21 17:34 97.4 F L 79 16 122/71 H 122/71 H 99 01/27/21 17:33 73 124/70 H 01/27/21 17:31 71 98 01/27/21 17:22 71 100 01/27/21 17:19 79 130/85 H 01/27/21 17:18 97.5 F L 01/27/21 17:17 68 100 01/27/21 17:12 67 100 01/27/21 17:07 66 100 01/27/21 17:04 97.5 F L 81 125/85 H 01/27/21 17:02 65 100 01/27/21 16:57 72 100 01/27/21 16:52 66 100 01/27/21 16:49 97.1 F L 71 126/83 H 01/27/21 16:47 69 100 01/27/21 16:42 63 100 01/27/21 16:37 62 100 01/27/21 16:34 97.1 F L 57 L 128/77 H 01/27/21 16:32 61 100 01/27/21 16:27 60 100 01/27/21 16:22 58 L 100 01/27/21 16:20 97.0 F L 68 127/79 H 01/27/21 16:17 70 100 01/27/21 16:12 64 100 01/27/21 16:10 83 01/27/21 16:09 72 130/58 H 01/27/21 16:07 63 100 01/27/21 16:02 71 100 01/27/21 15:57 64 100 01/27/21 15:52 75 100 01/27/21 15:49 76 138/79 H 01/27/21 15:47 97.3 F L 73 100 01/27/21 15:42 83 100 01/27/21 15:37 86 129/70 H 100 01/27/21 15:10 131 H 90 01/27/21 15:05 98 93 01/27/21 14:49 75 96 01/27/21 13:49 97.2 F L 01/27/21 13:33 108 H 100 01/27/21 13:28 76 100 01/27/21 13:25 59 L 114/71 01/27/21 13:24 96.9 F L 01/27/21 13:23 59 L 100 01/27/21 13:21 89 90 01/27/21 13:18 67 98 01/27/21 13:13 81 99 01/27/21 13:08 62 100 01/27/21 13:03 70 100 01/27/21 12:58 67 100 01/27/21 12:53 105 H 100 01/27/21 12:48 63 105/61 96 01/27/21 12:43 74 100 01/27/21 12:41 53 L 111/61 01/27/21 12:39 59 L 90 01/27/21 12:38 106/60 01/27/21 12:33 68 88 01/27/21 12:32 54 L 100/55 L 01/27/21 12:28 57 L 99 01/27/21 12:27 74 106/62 01/27/21 12:22 60 116/74 98 01/27/21 12:18 54 L 115/72 01/27/21 12:17 51 L 96 01/27/21 12:14 59 L 91 01/27/21 12:12 77 100 01/27/21 12:11 81 120/75 01/27/21 12:07 51 L 97 01/27/21 12:06 118/72 01/27/21 12:05 48 L 112/70 01/27/21 12:03 80 93/55 L 01/27/21 12:02 61 98 01/27/21 11:57 88 125/60 H 99 01/27/21 11:52 62 99 01/27/21 10:24 61 99 01/27/21 10:23 97.5 F L 57 L 131/80 H 01/27/21 09:09 99 01/27/21 09:08 97.4 F L 72 134/92 H 01/27/21 08:20 156 H 84 01/27/21 08:18 60 125/67 H 01/27/21 08:17 97.2 F L Lab tests last 48H 01/27/21 01/27/21 07:40 07:40 WBC 6.7 RBC 3.82 L Hgb 11.9 L Hct 34.8 L MCV 91.1 MCH 31.2 MCHC 34.2 RDW Std Deviation 41.9 RDW Coeff of Dana 12.9 Plt Count 179 MPV 9.9 Immature Gran % (Auto) 0.400 Neut % (Auto) 60.2 Lymph % (Auto) 29.7 [place] % (Auto) 7.6 Eos % (Auto) 1.2 Baso % (Auto) 0.9 Absolute Neuts (auto) 4.0 Absolute Lymphs (auto) 1.99 Nucleated RBC % 0 Blood Type O POSITIVE Antibody Screen NEGATIVE Vital Signs Vital Signs Vital Signs: 01/27/21 08:17 01/27/21 08:18 01/27/21 08:20 Temperature 97.2 F L Temperature Source Temporal Pulse Rate 60 156 H Respiratory Rate Blood Pressure 125/67 H Blood Pressure [BP] Blood Pressure Mean [BP] BP Systolic 125 BP Diastolic 67 Blood Pressure Source [BP] Blood Pressure Position [BP] Blood Pressure Location [BP] Pulse Ox 84 Oxygen Delivery Method 01/27/21 09:08 01/27/21 09:09 01/27/21 10:23 Temperature 97.4 F L 97.5 F L Temperature Source Temporal Temporal Pulse Rate 72 57 L Respiratory Rate Blood Pressure 134/92 H 131/80 H Blood Pressure [BP] Blood Pressure Mean [BP] BP Systolic 134 131 BP Diastolic 92 80 Blood Pressure Source [BP] Blood Pressure Position [BP] Blood Pressure Location [BP] Pulse Ox 99 Oxygen Delivery Method 01/27/21 10:24 01/27/21 11:52 01/27/21 11:57 Temperature Temperature Source Pulse Rate 61 62 88 Respiratory Rate Blood Pressure 125/60 H Blood Pressure [BP] Blood Pressure Mean [BP] BP Systolic 125 BP Diastolic 60 Blood Pressure Source [BP] Blood Pressure Position [BP] Blood Pressure Location [BP] Pulse Ox 99 99 99 Oxygen Delivery Method 01/27/21 12:02 01/27/21 12:03 01/27/21 12:05 Temperature Temperature Source Pulse Rate 61 80 48 L Respiratory Rate Blood Pressure 93/55 L 112/70 Blood Pressure [BP] Blood Pressure Mean [BP] BP Systolic 93 112 BP Diastolic 55 70 Blood Pressure Source [BP] Blood Pressure Position [BP] Blood Pressure Location [BP] Pulse Ox 98 Oxygen Delivery Method 01/27/21 12:06 01/27/21 12:07 01/27/21 12:11 Temperature Temperature Source Pulse Rate 51 L 81 Respiratory Rate Blood Pressure 118/72 120/75 Blood Pressure [BP] Blood Pressure Mean [BP] BP Systolic 118 120 BP Diastolic 72 75 Blood Pressure Source [BP] Blood Pressure Position [BP] Blood Pressure Location [BP] Pulse Ox 97 Oxygen Delivery Method 01/27/21 12:12 01/27/21 12:14 01/27/21 12:17 Temperature Temperature Source Pulse Rate 77 59 L 51 L Respiratory Rate Blood Pressure Blood Pressure [BP] Blood Pressure Mean [BP] BP Systolic BP Diastolic Blood Pressure Source [BP] Blood Pressure Position [BP] Blood Pressure Location [BP] Pulse Ox 100 91 96 Oxygen Delivery Method 01/27/21 12:18 01/27/21 12:22 01/27/21 12:27 Temperature Temperature Source Pulse Rate 54 L 60 74 Respiratory Rate Blood Pressure 115/72 116/74 106/62 Blood Pressure [BP] Blood Pressure Mean [BP] BP Systolic 115 116 106 BP Diastolic 72 74 62 Blood Pressure Source [BP] Blood Pressure Position [BP] Blood Pressure Location [BP] Pulse Ox 98 Oxygen Delivery Method 01/27/21 12:28 01/27/21 12:32 01/27/21 12:33 Temperature Temperature Source Pulse Rate 57 L 54 L 68 Respiratory Rate Blood Pressure 100/55 L Blood Pressure [BP] Blood Pressure Mean [BP] BP Systolic 100 BP Diastolic 55 Blood Pressure Source [BP] Blood Pressure Position [BP] Blood Pressure Location [BP] Pulse Ox 99 88 Oxygen Delivery Method 01/27/21 12:38 01/27/21 12:39 01/27/21 12:41 Temperature Temperature Source Pulse Rate 59 L 53 L Respiratory Rate Blood Pressure 106/60 111/61 Blood Pressure [BP] Blood Pressure Mean [BP] BP Systolic 106 111 BP Diastolic 60 61 Blood Pressure Source [BP] Blood Pressure Position [BP] Blood Pressure Location [BP] Pulse Ox 90 Oxygen Delivery Method 01/27/21 12:43 01/27/21 12:48 01/27/21 12:53 Temperature Temperature Source Pulse Rate 74 63 105 H Respiratory Rate Blood Pressure 105/61 Blood Pressure [BP] Blood Pressure Mean [BP] BP Systolic 105 BP Diastolic 61 Blood Pressure Source [BP] Blood Pressure Position [BP] Blood Pressure Location [BP] Pulse Ox 100 96 100 Oxygen Delivery Method 01/27/21 12:58 01/27/21 13:03 01/27/21 13:08 Temperature Temperature Source Pulse Rate 67 70 62 Respiratory Rate Blood Pressure Blood Pressure [BP] Blood Pressure Mean [BP] BP Systolic BP Diastolic Blood Pressure Source [BP] Blood Pressure Position [BP] Blood Pressure Location [BP] Pulse Ox 100 100 100 Oxygen Delivery Method 01/27/21 13:13 01/27/21 13:18 01/27/21 13:21 Temperature Temperature Source Pulse Rate 81 67 89 Respiratory Rate Blood Pressure Blood Pressure [BP] Blood Pressure Mean [BP] BP Systolic BP Diastolic Blood Pressure Source [BP] Blood Pressure Position [BP] Blood Pressure Location [BP] Pulse Ox 99 98 90 Oxygen Delivery Method 01/27/21 13:23 01/27/21 13:24 01/27/21 13:25 Temperature 96.9 F L Temperature Source Temporal Pulse Rate 59 L 59 L Respiratory Rate Blood Pressure 114/71 Blood Pressure [BP] Blood Pressure Mean [BP] BP Systolic 114 BP Diastolic 71 Blood Pressure Source [BP] Blood Pressure Position [BP] Blood Pressure Location [BP] Pulse Ox 100 Oxygen Delivery Method 01/27/21 13:28 01/27/21 13:33 01/27/21 13:49 Temperature 97.2 F L Temperature Source Temporal Pulse Rate 76 108 H Respiratory Rate Blood Pressure Blood Pressure [BP] Blood Pressure Mean [BP] BP Systolic BP Diastolic Blood Pressure Source [BP] Blood Pressure Position [BP] Blood Pressure Location [BP] Pulse Ox 100 100 Oxygen Delivery Method 01/27/21 14:49 01/27/21 15:05 01/27/21 15:10 Temperature Temperature Source Pulse Rate 75 98 131 H Respiratory Rate Blood Pressure Blood Pressure [BP] Blood Pressure Mean [BP] BP Systolic BP Diastolic Blood Pressure Source [BP] Blood Pressure Position [BP] Blood Pressure Location [BP] Pulse Ox 96 93 90 Oxygen Delivery Method 01/27/21 15:37 01/27/21 15:42 01/27/21 15:47 Temperature 97.3 F L Temperature Source Temporal Pulse Rate 86 83 73 Respiratory Rate Blood Pressure 129/70 H Blood Pressure [BP] Blood Pressure Mean [BP] BP Systolic 129 BP Diastolic 70 Blood Pressure Source [BP] Blood Pressure Position [BP] Blood Pressure Location [BP] Pulse Ox 100 100 100 Oxygen Delivery Method 01/27/21 15:49 01/27/21 15:52 01/27/21 15:57 Temperature Temperature Source Pulse Rate 76 75 64 Respiratory Rate Blood Pressure 138/79 H Blood Pressure [BP] Blood Pressure Mean [BP] BP Systolic 138 BP Diastolic 79 Blood Pressure Source [BP] Blood Pressure Position [BP] Blood Pressure Location [BP] Pulse Ox 100 100 Oxygen Delivery Method 01/27/21 16:02 01/27/21 16:07 01/27/21 16:09 Temperature Temperature Source Pulse Rate 71 63 72 Respiratory Rate Blood Pressure 130/58 H Blood Pressure [BP] Blood Pressure Mean [BP] BP Systolic 130 BP Diastolic 58 Blood Pressure Source [BP] Blood Pressure Position [BP] Blood Pressure Location [BP] Pulse Ox 100 100 Oxygen Delivery Method 01/27/21 16:10 01/27/21 16:12 01/27/21 16:17 Temperature Temperature Source Pulse Rate 64 70 Respiratory Rate Blood Pressure Blood Pressure [BP] Blood Pressure Mean [BP] BP Systolic BP Diastolic Blood Pressure Source [BP] Blood Pressure Position [BP] Blood Pressure Location [BP] Pulse Ox 83 100 100 Oxygen Delivery Method 01/27/21 16:20 01/27/21 16:22 01/27/21 16:27 Temperature 97.0 F L Temperature Source Temporal Pulse Rate 68 58 L 60 Respiratory Rate Blood Pressure 127/79 H Blood Pressure [BP] Blood Pressure Mean [BP] BP Systolic 127 BP Diastolic 79 Blood Pressure Source [BP] Blood Pressure Position [BP] Blood Pressure Location [BP] Pulse Ox 100 100 Oxygen Delivery Method 01/27/21 16:32 01/27/21 16:34 01/27/21 16:37 Temperature 97.1 F L Temperature Source Temporal Pulse Rate 61 57 L 62 Respiratory Rate Blood Pressure 128/77 H Blood Pressure [BP] Blood Pressure Mean [BP] BP Systolic 128 BP Diastolic 77 Blood Pressure Source [BP] Blood Pressure Position [BP] Blood Pressure Location [BP] Pulse Ox 100 100 Oxygen Delivery Method 01/27/21 16:42 01/27/21 16:47 01/27/21 16:49 Temperature 97.1 F L Temperature Source Temporal Pulse Rate 63 69 71 Respiratory Rate Blood Pressure 126/83 H Blood Pressure [BP] Blood Pressure Mean [BP] BP Systolic 126 BP Diastolic 83 Blood Pressure Source [BP] Blood Pressure Position [BP] Blood Pressure Location [BP] Pulse Ox 100 100 Oxygen Delivery Method 01/27/21 16:52 01/27/21 16:57 01/27/21 17:02 Temperature Temperature Source Pulse Rate 66 72 65 Respiratory Rate Blood Pressure Blood Pressure [BP] Blood Pressure Mean [BP] BP Systolic BP Diastolic Blood Pressure Source [BP] Blood Pressure Position [BP] Blood Pressure Location [BP] Pulse Ox 100 100 100 Oxygen Delivery Method 01/27/21 17:04 01/27/21 17:07 01/27/21 17:12 Temperature 97.5 F L Temperature Source Temporal Pulse Rate 81 66 67 Respiratory Rate Blood Pressure 125/85 H Blood Pressure [BP] Blood Pressure Mean [BP] BP Systolic 125 BP Diastolic 85 Blood Pressure Source [BP] Blood Pressure Position [BP] Blood Pressure Location [BP] Pulse Ox 100 100 Oxygen Delivery Method 01/27/21 17:17 01/27/21 17:18 01/27/21 17:19 Temperature 97.5 F L Temperature Source Temporal Pulse Rate 68 79 Respiratory Rate Blood Pressure 130/85 H Blood Pressure [BP] Blood Pressure Mean [BP] BP Systolic 130 BP Diastolic 85 Blood Pressure Source [BP] Blood Pressure Position [BP] Blood Pressure Location [BP] Pulse Ox 100 Oxygen Delivery Method 01/27/21 17:22 01/27/21 17:31 01/27/21 17:33 Temperature Temperature Source Pulse Rate 71 71 73 Respiratory Rate Blood Pressure 124/70 H Blood Pressure [BP] Blood Pressure Mean [BP] BP Systolic 124 BP Diastolic 70 Blood Pressure Source [BP] Blood Pressure Position [BP] Blood Pressure Location [BP] Pulse Ox 100 98 Oxygen Delivery Method 01/27/21 17:34 Temperature 97.4 F L Temperature Source Temporal Pulse Rate 79 Respiratory Rate 16 Blood Pressure 122/71 H Blood Pressure [BP] 122/71 H Blood Pressure Mean [BP] 88 BP Systolic 122 BP Diastolic 71 Blood Pressure Source [BP] Monitor Blood Pressure Position [BP] Semi-Fowlers Blood Pressure Location [BP] Left Arm Pulse Ox 99 Oxygen Delivery Method Room Air Weight Weight: 57.606 kg Body Mass Index (BMI) 21.8 General Weight: 57.606 kg alert, active, no apparent distress and strong cry HEENT Yes normal to inspection and normocephalic Eyes: red reflex present bilaterally and conjunctiva normal Ears: Yes external ears normal and Yes neutral position Nose: Yes external nose normal and nares normal Oropharynx: Yes oral and palatal mucosa normal and Yes moist mucous membranes abnormal Neck Neck: full ROM, no lymphadenopathy and supple Respiratory Respiratory: normal respiratory effort and clear to auscultation bilaterally Cardiovascular Yes regular rate, regular rhythm, no murmurs, no clicks, no rub, no gallops, normal capillary refill and femoral pulses present Abdomen normal to inspection, nondistended, normoactive bowel sounds, soft to palpation, non-distended, non-tender and no hepatosplenomegaly 3 Vessels external exam normal Musculoskeletal full ROM and hip exam without evidence of dislocation or instability Neurological normal suck, rooting, and barry reflexes, muscle tone normal and moving extremities equally Skin normal color and no jaundice
[2021-01-27] MEDS: Ibuprofen 600 MG Tablet PO (21:37)
[2021-01-28] VITALS (9 sets, daily range): BP systolic 120–137; BP diastolic 74–84; PULSE 57–74; RESP 14–16; TEMP 36.1–36.3; O2SAT 96–98
[2021-01-28] MEDS: Ibuprofen 600 MG Tablet PO (08:33)
[2021-01-28] MEDS: Senna/Docusate Sodium 1 Tablet PO (08:46)
--- NOTE | 2021-01-28 08:54 | PN.OBGYN_ITS ---
Subjective Subjective Pain well controlled. Average lochia. Objective Data Objective Data Vital Signs: Vital Signs Temp Pulse Resp BP Pulse Ox 97.4 F L 57 L 14 137/82 H 98 01/28/21 04:55 01/28/21 08:35 01/28/21 04:55 01/28/21 08:35 01/28/21 04:55 Oxygen Delivery Method Room Air Weight: 57.606 kg Body Mass Index (BMI) 21.8 Intake & Output: Intake and Output for Last 24 Hours 01/26/21 01/27/21 01/28/21 23:59 23:59 23:59 Intake Total 1969.07 / 1969.07 Output Total 200 / 200 250 / 250 Balance 1769.07 / 1769.07 -250 / -250 Lab / Micro Data Result Diagrams: 01/27/21 07:40 Labs: Laboratory Results - last 24 hr 01/27/21 07:40: Blood Type O POSITIVE, Antibody Screen NEGATIVE Physical Exam Const alert and no apparent distress Narrative: Fundus firm, below umbilicus. Assessment & Plan (1) Normal vaginal delivery: PLAN: day #1 status post vaginal delivery. is breast- feeding and doing well. Patient is doing well. Patient desires discharge home today. 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
--- NOTE | 2021-01-28 08:55 | PCM.DC.SUM ---
Providers Date of Admission: 01/27/21 Date of Discharge: 01/28/21 Reason For Visit: VAGINAL DELIVERY Diagnosis Discharge Diagnosis (1) Normal vaginal delivery: Status: Acute Code(s): O80 - Encounter for full-term uncomplicated delivery Medications at Discharge Home Medications Prenatabs FA 1 tab PO DAILY 12/20/17 ferrous sulfate [Iron (ferrous sulfate)] 325 mg PO DAILY 01/27/21 Hospital Course Operations - (Spontaneous vaginal delivery.) Procedures None Summary of Care Provided Hospital Course: Patient was admitted for induction of labor. She had an uncomplicated vaginal delivery. Weight / BMI Weight Weight: 57.606 kg Body Mass Index (BMI) 21.8 ABG / Lab / Microbiology Data Result Diagrams: 01/27/21 07:40 Laboratory: Laboratory Results - last 24 hr 01/27/21 07:40: Blood Type O POSITIVE, Antibody Screen NEGATIVE D/C Instructions Discharge Diet: No restrictions May resume sexual activity in: 6 weeks Call your doctor if your incision/area has: Continuous Slow Oozing, Sudden Increased Bleeding, Foul Smelling Discharge and Swelling at the incision site Call your doctor if you observe: Fever of 101 or Higher and Inability to urinate Please Follow Up With: Marycruz Theodore MD When: Follow up with our office in 1-2 and 6 weeks or as needed. [phone] Meaningful Use Info Meaningful Use Diagnoses (Choose all that apply): None applicable Discharge Plan Admission Admit Date/Time: 01/27/21 07:00 Primary Reason for Your Visit: Vaginal delivery Attending Provider: Manda Camacho Discharge Orders/Prescriptions Prescriptions: No Action Prenatabs FA 1 tab PO DAILY RF: 0 ferrous sulfate [Iron (ferrous sulfate)] 325 mg (65 mg iron) Tablet 325 mg PO DAILY RF: 0 Disposition Disposition (needs filled in before D/C Order can be placed): Home, Self Care
[2021-01-28] MEDS: Acetaminophen 500 MG Tablet PO (10:06)
== END 2021-01-28 17:20 | disposition home or self-care (01) | DRG 807 ==
PROVIDERS: Obstetrics & Gynecology; Admitting Provider Obstetrics & Gynecology; Referring Provider Obstetrics & Gynecology; Visit Provider Obstetrics & Gynecology
DX: O99.824 Streptococcus B carrier state complicating childbirth (principal); Z37.0 Single live birth; Z3A.39 39 weeks gestation of pregnancy; O66.3 Obstructed labor due to other abnormalities of fetus; O76 Abnormality in fetal heart rate and rhythm complicating labor and delivery; O70.1 Second degree perineal laceration during delivery
CPT/HCPCS: 59025; 59050; 85025; 86850; 86900; 86901; 99218; J7120; A4216; G0378

== ENCOUNTER 2024-08-31 02:15 | Inpatient (IN) | payer OTHER, SELFPAY ==
[2024-08-31] VITALS (57 sets, daily range): BP systolic 92–143; BP diastolic 55–88; PULSE 52–96; RESP 14–18; TEMP 36–36.9; O2SAT 86–100; BMI 22.6
[2024-08-31] MEDS: Lactated Ringers 1,000 ML 50 ML IV (02:45)
--- NOTE | 2024-08-31 02:52 | NURSING ---
pt unable to bring copy in.
[2024-08-31 03:00] LABS: ROM Internal Control Test YES-OK TO RESULT pt. (Internal QC); ROM Patient Test POSITIVE (Negative); Record Kit Lot#, ROM+ K3294
[2024-08-31 03:00] LABS: Absolute Lymphocyte Count 2.24 X10^3/uL (0.83-4.51); Absolute Neutrophil Count 4.8 X10^3/uL (2.0-7.7); Basophil# 0.04 X10^3/uL; Basophil% 0.5 % (0-1); Eosinophil# 0.07 X10^3/uL; Eosinophils% 0.9 % (0-5); Hematocrit 34.7 % (37-47); Hemoglobin 11.9 g/dL (12.0-15.0); Lymphocyte # 2.24 X10^3/ul (0.83-4.51); Lymphocyte % 28.9 % (19-41); Mean Corp Hgb Conc 34.3 g/dL (32-36); Mean Corpuscular Hgb 30.1 pg (27.0-32.0); Mean Corpuscular Volume 87.8 fL (81-99); Mean Platelet Vol. 8.6 fl (6.2-12.0); Monocyte# 0.53 X10^3/uL; Monocyte% 6.8 % (0-10); NRBC Flagged by Analyzer 0 % (0-5); Neutrophil # 4.83 X10^3/uL (2.7-7.7); Neutrophil % 62.4 % (47-70); Platelet Count 244 K/mm3 (150-450); RBC Distribution Width CV 13.5 % (11.6-14.6); RBC Distribution Width SD 43.5 fl (35.1-43.9); Red Blood Count 3.95 M/mm3 (4.2-5.4); White Blood Count 7.8 K/mm3 (4.4-11.0)
[2024-08-31] MEDS: Penicillin G Pot 5,000,000 UNITS in 0.9% Normal Saline (100mL MB+) 100 ML 150 UNITS IV (03:15)
[2024-08-31] MEDS: fentaNYL-bupivacaine (epidural) 100 ML BAG EPIDURAL (03:37)
[2024-08-31 03:38] LABS: Syphilis Antibodies Nonreactive (Nonreactive)
[2024-08-31] MEDS: Lactated Ringers 1,000 ML 200 ML IV (03:48)
--- NOTE | 2024-08-31 04:25 | PCM.HP.OB ---
HPI - General General Date of Admission: 08/31/24 Date of Service: 08/31/24 Chief Complaint: contractions HPI Narrative ALPHONSE BRUNO, is a 34 F who presents in active labor. GBS positive. Desires Epidural Maternal Data Information Final MATTY: 09/04/24 Gestational age: 39+3 PFSH PFSH Home Medications ?Medication ?Instructions ?Recorded ?Last Taken ?Type Prenatabs FA 1 tab PO DAILY nutrition 12/20/17 08/30/24 08:00 History ferrous sulfate 325 mg (65 mg 325 mg PO DAILY 01/27/21 01/25/21 10:00 History iron) tablet (Iron (ferrous sulfate)) Held on 08/31/24. Instructions: MD Ordered Allergy/AdvReac Type Severity Reaction Status Date / Time No Known Allergies Allergy Verified 08/31/24 02:27 Family History Mother Hypertension Father Hypertension Uncle Down syndrome Surgical History H/O dilation and curettage Social History Smoking Status: Never smoker History 5 Elective abortions Hx Para 2 Spontaneous abortions Hx # Term Pregnancies Ectopic pregnancies Hx # Pregnancies Multiple births # of living children NST FHR Rate Baby A Baseline: 120 Variability:: Moderate Accelerations:: 15 x 15 Decelerations:: None NST Reactive:: Yes FHR Category:: Category I Uterine Activity:: q 3 Vital Signs Vital Signs Vital Signs: 08/31/24 02:31 08/31/24 02:31 08/31/24 02:32 Temperature Temperature Source Pulse Rate 73 Respiratory Rate Blood Pressure 133/88 H BP Systolic 133 BP Diastolic 88 Pulse Ox 99 08/31/24 02:32 08/31/24 02:32 08/31/24 02:32 Temperature Temperature Source Temporal Pulse Rate 70 Respiratory Rate 16 Blood Pressure BP Systolic BP Diastolic Pulse Ox 08/31/24 02:32 08/31/24 02:32 08/31/24 03:12 Temperature 97.3 F L Temperature Source Pulse Rate Respiratory Rate Blood Pressure 143/87 H BP Systolic 143 BP Diastolic 87 Pulse Ox 98 08/31/24 03:12 08/31/24 03:12 08/31/24 03:18 Temperature Temperature Source Pulse Rate 74 Respiratory Rate 18 Blood Pressure 132/86 H BP Systolic 132 BP Diastolic 86 Pulse Ox 08/31/24 03:18 08/31/24 03:18 08/31/24 03:18 Temperature Temperature Source Pulse Rate 77 Respiratory Rate 18 Blood Pressure BP Systolic BP Diastolic Pulse Ox 99 08/31/24 03:23 08/31/24 03:23 08/31/24 03:24 Temperature Temperature Source Pulse Rate 66 Respiratory Rate Blood Pressure 133/68 H BP Systolic 133 BP Diastolic 68 Pulse Ox 98 08/31/24 03:24 08/31/24 03:24 08/31/24 03:25 Temperature Temperature Source Pulse Rate 75 68 Respiratory Rate 18 Blood Pressure BP Systolic BP Diastolic Pulse Ox 08/31/24 03:25 08/31/24 03:28 08/31/24 03:28 Temperature Temperature Source Pulse Rate 68 Respiratory Rate Blood Pressure BP Systolic BP Diastolic Pulse Ox 86 97 08/31/24 03:30 08/31/24 03:30 08/31/24 03:30 Temperature Temperature Source Pulse Rate 65 Respiratory Rate 18 Blood Pressure 122/64 H BP Systolic 122 BP Diastolic 64 Pulse Ox 08/31/24 03:33 08/31/24 03:33 08/31/24 03:35 Temperature Temperature Source Pulse Rate 81 Respiratory Rate Blood Pressure 128/70 H BP Systolic 128 BP Diastolic 70 Pulse Ox 98 08/31/24 03:35 08/31/24 03:35 08/31/24 03:38 Temperature Temperature Source Pulse Rate 57 L 70 Respiratory Rate 18 Blood Pressure BP Systolic BP Diastolic Pulse Ox 08/31/24 03:38 08/31/24 03:39 08/31/24 03:39 Temperature Temperature Source Pulse Rate 52 L Respiratory Rate Blood Pressure 140/73 H BP Systolic 140 BP Diastolic 73 Pulse Ox 100 08/31/24 03:39 08/31/24 03:43 08/31/24 03:43 Temperature Temperature Source Pulse Rate 52 L Respiratory Rate 18 Blood Pressure BP Systolic BP Diastolic Pulse Ox 99 08/31/24 03:44 08/31/24 03:44 08/31/24 03:44 Temperature Temperature Source Pulse Rate 68 Respiratory Rate 18 Blood Pressure 136/78 H BP Systolic 136 BP Diastolic 78 Pulse Ox 08/31/24 03:48 08/31/24 03:48 08/31/24 03:50 Temperature Temperature Source Pulse Rate 65 Respiratory Rate Blood Pressure 128/68 H BP Systolic 128 BP Diastolic 68 Pulse Ox 99 08/31/24 03:50 08/31/24 03:50 08/31/24 03:50 Temperature Temperature Source Temporal Pulse Rate 61 Respiratory Rate 18 Blood Pressure BP Systolic BP Diastolic Pulse Ox 08/31/24 03:50 08/31/24 03:53 08/31/24 03:53 Temperature 97.0 F L Temperature Source Pulse Rate 75 Respiratory Rate Blood Pressure BP Systolic BP Diastolic Pulse Ox 99 08/31/24 03:55 08/31/24 03:55 08/31/24 03:55 Temperature Temperature Source Pulse Rate 62 Respiratory Rate 18 Blood Pressure 123/59 H BP Systolic 123 BP Diastolic 59 Pulse Ox 08/31/24 03:58 08/31/24 03:58 08/31/24 03:59 Temperature Temperature Source Pulse Rate 60 Respiratory Rate Blood Pressure 110/59 L BP Systolic 110 BP Diastolic 59 Pulse Ox 100 08/31/24 03:59 08/31/24 03:59 08/31/24 04:03 Temperature Temperature Source Pulse Rate 61 63 Respiratory Rate 18 Blood Pressure BP Systolic BP Diastolic Pulse Ox 08/31/24 04:03 08/31/24 04:05 08/31/24 04:05 Temperature Temperature Source Pulse Rate 68 Respiratory Rate Blood Pressure 115/64 BP Systolic 115 BP Diastolic 64 Pulse Ox 100 08/31/24 04:05 Temperature Temperature Source Pulse Rate Respiratory Rate 18 Blood Pressure BP Systolic BP Diastolic Pulse Ox Weight Weight: 59.874 kg Body Mass Index (BMI) 22.6 Physical Exam Const alert and no apparent distress General Appearance: cooperative HEENT normocephalic Resp normal respiratory effort Cardio regular rate GI soft to palpation GI Narrative: gravid, nontender, appropriate for gestational age Extremity no calf tenderness General Extremity: edema Skin no wounds Rashes: No rashes noted Psych activity/motor behavior normal Labs Labs Labs: Blood Type O POSITIVE Antibody Screen NEGATIVE Hct 34.7 % (37-47) L Hgb 11.9 g/dL (12.0-15.0) L Syphilis Total Ab Nonreactive (Nonreactive) Rhogam given: No Assessment & Plan (1) Normal labor: (2) 39 weeks gestation of : PLAN: Plan PCN for GBS Epidural prn expectant management
[2024-08-31] MEDS: Oxytocin 10 UNITS/ML Vial IM (06:31)
[2024-08-31] MEDS: Oxytocin 15 Units/NS 250ml 15 UNITS/250 ML IV.SOLN 83 UNITS IV (06:31)
--- NOTE | 2024-08-31 06:44 | OB.VAGDELI_ITS ---
Assessment & Plan (1) (spontaneous vaginal delivery): Maternal Data Information Final MATTY: 09/04/24 Gestational age: 39+3 Vaginal Delivery Maternal Presentation Maternal Presentation: Active Labor and Spontaneous Rupture of Membranes Maternal Presentation: SROM Vaginal Delivery Information Procedure Performed: Spontaneous Vaginal Delivery Surgeon/Practitioner: Lydia Lares Date of Procedure: 08/31/24 Pre-Procedure Diagnosis: SROM Post-Procedure Diagnosis: Type of anesthesia: Epidural Estimated Blood Loss: 100 cc Time of Delivery: 06:29 Findings Description of procedure: Presented in active with SROM. Epidural was placed. GBS positive but only received one dose of PCN before progressing to complete. She pushed over and intact perineum to deliver the Head LACHO. There was a tight nuchal cord that had to be cut on the perineum. The shoulders and body delivered with one push. The cried immediately and was placed on the maternal abdomen. Cord blood was collected. The placenta delivered with gentle traction. A first degree laceration was repaired with 2-0 Vicryl. All sponge, instrument and needle counts were correct. 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
[2024-08-31] MEDS: Ibuprofen 600 MG Tablet PO (20:59)
[2024-09-01] VITALS (13 sets, daily range): BP systolic 114–145; BP diastolic 74–90; PULSE 58–80; RESP 14–18; TEMP 36.3–36.7; O2SAT 98–100
[2024-09-01] MEDS: Ibuprofen 600 MG Tablet PO (03:10)
--- NOTE | 2024-09-01 08:07 | PCM.PN.CNM ---
Subjective Subjective Patient seen at bedside. Denies any pain. Ambulating and voiding without difficulty. Lochia decreasing. Objective Data Objective Data Vital Signs: Vital Signs Temp Pulse Resp BP Pulse Ox O2 Del Method 97.3 F L 60 16 114/74 98 Room Air 09/01/24 05:00 09/01/24 05:00 09/01/24 05:00 09/01/24 05:00 09/01/24 05:00 09/01/24 05:00 Oxygen Delivery Method Room Air Weight: 132 lb Body Mass Index (BMI) 22.6 Intake & Output: Intake and Output for Last 24 Hours 08/30/24 08/31/24 09/01/24 23:59 23:59 23:59 Intake Total 2338.98 / 2338.98 Output Total 1400 / 1400 Balance 938.98 / 938.98 Lab / Micro Data Attestation: I reviewed the patient's lab results. 08/31/24 02:45 ROS Eyes Eyes: Denies blurry vision, change in vision or spots in vision ENT HEENT: Denies dizziness or headache(s) Cardiovascular Cardiovascular: Denies abdominal pain, chest pain or dyspnea Respiratory/Chest Respiratory/Chest: Denies cough, dyspnea, shortness of breath at rest or shortness of breath with exertion Gastrointestinal Gastrointestinal: Denies abdominal pain, diarrhea or vomiting Genitourinary Genitourinary: Denies change in urinary stream, difficulty urinating or dysuria Musculoskeletal Musculoskeletal: Reports none Integumentary Integumentary: Denies rash Neurologic Neurologic: Denies dizziness, headache(s), memory loss or weakness Physical Exam Const alert and no apparent distress General Appearance: cooperative and comfortable Exam Limitations: no limitations HEENT normocephalic Eyes General Eye: normal appearance of both eyes Neck full ROM General: normal visual inspection Chest Chest: symmetrical chest wall rise Resp normal respiratory effort and normal air movement Effort and Inspection: symmetric chest movement Auscultation: clear to auscultation bilaterally Cardio regular rate and regular rhythm GI normal to inspection, nondistended, normoactive bowel sounds Back/Spine normal ROM Extremity full ROM and no calf tenderness General Extremity: normal exam except as noted Skin no rashes or lesions noted Neuro oriented x3 Speech: speech normal Psych mental status grossly normal Thought Process: normal thought process Assessment & Plan (1) (spontaneous vaginal delivery): (2) Care and examination of lactating mother: (3) Positive GBS test: PLAN: Plan PPD 2 GBS positive - delivered before treatment support Possible D/C home after 36 hours
--- NOTE | 2024-09-01 16:53 | PCM.DC.SUM ---
Providers Date of Admission: 08/31/24 Reason For Visit: LABOR AND DELIVERY/VAGINAL DELIVERY Diagnosis Discharge Diagnosis (1) (spontaneous vaginal delivery): Status: Acute Code(s): O80 - Encounter for full-term uncomplicated delivery (2) Care and examination of lactating mother: Status: Acute Code(s): Z39.1 - Encounter for care and examination of lactating mother (3) Positive GBS test: Status: Acute Code(s): B95.1 - Streptococcus, group B, as the cause of diseases classified elsewhere Plan PPD 2 GBS positive - delivered before treatment support Possible D/C home after 36 hours Medications at Discharge Home Medications Prenatabs FA 1 tab PO DAILY nutrition 12/20/17 ferrous sulfate 325 mg (65 mg iron) tablet (Iron (ferrous sulfate)) 325 mg PO DAILY 01/27/21 ibuprofen 600 mg tablet 600 mg PO Q6H PRN PRN Pain Score 1-10 #0 tabs 09/01/24 Hospital Course Operations None Procedures None Summary of Care Provided Minutes Spent on Discharge: 15 Hospital Course: Patient had vaginal delivery. Hospital course was uneventful. Physical Exam Narrative Patient seen at bedside. Denies pain. Ambulating and voiding without difficulty. Lochia decreased. Desires discharge home today. Const alert and oriented x3 General Appearance: Negative for in distress HEENT normocephalic Eyes General Eye: normal appearance of both eyes Neck General: normal visual inspection Chest Chest: symmetrical chest wall rise Resp normal respiratory effort and normal air movement Effort and Inspection: symmetric chest movement; Negative for tachypneic Auscultation: clear to auscultation bilaterally Cardio regular rate and regular rhythm Peripheral Pulses: pulses 2+ throughout GI normal to inspection, nondistended, normoactive bowel sounds Narrative: Ice to perineum OB / External & Speculum: vaginal bleeding and other Lochia decreasing Uterus Palpation: uterus fundus firm (Below U) Extremity normal to inspection, full ROM and normal capillary refill Skin no rashes or lesions noted Neuro oriented x3, CN's II-XII intact bilaterally and gait normal Psych mental status grossly normal, thought process normal and activity/motor behavior normal Weight / BMI Weight Weight: 132 lb Body Mass Index (BMI) 22.6 ABG / Lab / Microbiology Data 08/31/24 02:45 D/C Instructions Discharge Diet: No restrictions Discharge Activity: Return to Normal Activity, No Restrictions, May Drive, May Shower and May Take a Tub Bath (Warm water only. No bath salts, soaps, bubbles) May resume sexual activity in: 6-8 weeks Weight Bearing Status: Weight bearing as tolerated Call your doctor if you observe: Fever of 101 or Higher, Inability to urinate, Using more than 1 pad per hour, Shortness of breath, Dizziness, Chest pain, Calf discomfort and Uncontrolled pain DC O2, CPAP, BIPAP Needs Home O2 Discharge instructions: No Please Follow Up With: [facility] Alexi WILL When: 2 weeks in office or virtual Meaningful Use Info Meaningful Use Meaningful Use Diagnoses (Choose all that apply): None applicable Ischemic Stroke Statin Dosing Therapy Reference: STATIN DOSE THERAPY REFERENCE: * Patients > 75 years receive moderate or high dose statin therapy. * Patients 75 years or YOUNGER should receive HIGH intensity statin dose unless contraindicated. You will be required to document reason for non-treatment if statin daily dose does not meet guidelines. HIGH DOSE STATIN THERAPY DAILY Atorvastatin > than or = to 40 mg Rosuvastatin > than or = to 20 mg Amlodipine + Atorvastatin > than or = to 2.5/40 mg Ezetimibe + Simvastatin 10/80 mg Simvastatin 80mg Discharge Plan Admission Admit Date/Time: 08/31/24 02:15 Primary Reason for Your Visit: Labor and delivery Attending Provider: Lydia Lares Discharge Orders/Prescriptions Prescriptions: New ibuprofen 600 mg Tablet 600 mg PO Q6H PRN PRN (Reason: Pain Score 1-10) Qty: 0 0RF Continued Prenatabs FA 1 tab PO DAILY ferrous sulfate [Iron (ferrous sulfate)] 325 mg (65 mg iron) Tablet 325 mg PO DAILY Referrals / Follow Up: Genet Guevara CNM [Med Staff - Adv Practice Prof] - Disposition Disposition (needs filled in before D/C Order can be placed): Home, Self Care
== END 2024-09-01 18:25 | disposition home or self-care (01) | DRG 807 ==
PROVIDERS: Admitting Provider Obstetrics & Gynecology; Referring Provider Obstetrics & Gynecology; Visit Provider Obstetrics & Gynecology
DX: O99.824 Streptococcus B carrier state complicating childbirth (principal); Z37.0 Single live birth; O69.1XX0 Labor and delivery complicated by cord around neck, with compression, not applicable or unspecified; O70.0 First degree perineal laceration during delivery; Z3A.39 39 weeks gestation of pregnancy
CPT/HCPCS: 59025; 59050; 84112; 85025; 86780; 86850; 86900; 86901; 99221; G0378